=== PATIENT | male | born 1980 | race African-American/Black ===

== ENCOUNTER 2017-05-06 21:18 | Emergency (ER) | payer OTHER ==
[~2017-05-06] VITALS: Ht 177.8 cm; Wt 108.9 kg
[2017-05-06 21:28] VITALS: BP 148/80
--- NOTE | 2017-05-06 21:31 | NUR ---
PT. AMBULATES TO ER BED 11
--- NOTE | 2017-05-06 21:40 | NUR ---
Patient being evaluated by at bedside.
--- NOTE | 2017-05-06 22:00 | NUR ---
36 Y/O M W/C/O L LOWER BACK PAIN X SATURDAY, NO LOC. NO MED HX. AAO X 4, AMBULATORY WITH STEADY GAIT. RESPIRATIONS ROOM AIR, EVEN AND UNLABORED. NO APPARENT INJURY. C/O PAIN 01/24. VSS. ER MADE AWARE OF PT. STATUS.
[2017-05-06] MEDS ORDERED: DIAZEPAM 5 MG TAB PO ONE (22:05)
[2017-05-06] MEDS ORDERED: fentaNYL 0.05 MG/ML VIAL IM ONE (22:05)
--- NOTE | 2017-05-06 23:02 | NUR ---
Patient discharged with v/s stable. Written and verbal after care instructions given and explained. Patient alert, oriented and verbalized understanding of instructions. Ambulatory with steady gait. All questions addressed prior to discharge. ID band removed. Patient advised to follow up with PMD. Rx of NAPROSYN 500 MG, VALIUM 5 MG given. Patient educated on indication of medication including possible reaction and side effects. Opportunity to ask questions provided and answered.
[2017-05-06 23:03] VITALS: BP 130/82
== END 2017-05-06 23:02 | disposition home or self-care (01) ==
LOC: MED 21:18
DX: S29.012A Strain of muscle and tendon of back wall of thorax, initial encounter (principal); F17.210 Nicotine dependence, cigarettes, uncomplicated; V49.50XA Passenger injured in collision with unspecified motor vehicles in traffic accident, initial encounter; Y93.89 Activity, other specified; Y92.488 Other paved roadways as the place of occurrence of the external cause; Y99.8 Other external cause status
CPT/HCPCS: 71010; 96372; 99283; J3010